=== PATIENT | female | born 1945 | race Caucasian/White ===

== ENCOUNTER 2019-05-14 01:27 | Outpatient (RCR) | payer MEDICARE, BC, SELFPAY ==
[2019-05-14] MEDS: Normal Saline Flush 10 ML SYR IVP (12:04)
== END 2019-05-17 23:59 | disposition home or self-care (01) ==
LOC: INF 01:27
PROVIDERS: Visit Provider Internal Medicine
DX: M06.00 Rheumatoid arthritis without rheumatoid factor, unspecified site (principal)
CPT/HCPCS: 96365; J3490

== ENCOUNTER 2019-06-11 01:45 | Outpatient (RCR) | payer MEDICARE, BC, SELFPAY ==
[2019-06-11] MEDS: Normal Saline Flush 10 ML SYR IVP (09:49)
== END 2019-06-17 23:59 | disposition home or self-care (01) ==
LOC: INF 01:45
PROVIDERS: Visit Provider Internal Medicine
DX: M13.80 Other specified arthritis, unspecified site (principal)
CPT/HCPCS: 96365; J3490